=== PATIENT | male | born 1975 | race Caucasian/White ===

== ENCOUNTER 2017-04-27 07:03 | Day surgery (SDC) | payer BC, OTHER ==
[2017-04-26 14:24] VITALS: BMI 27.3
[2017-04-27] MEDS ORDERED: LIDOCAINE HCL 2% (20ML MULTI-DOSE VIAL) NR ONE (07:51)
[2017-04-27] MEDS ORDERED: PROPOFOL 20 ML ONE ×3 (07:51)
[2017-04-27 08:41] VITALS: TEMP 97.9
[2017-04-27 12:05] VITALS: BP 112/64; PULSE 52
--- NOTE | 2017-04-28 12:54 | PATH ---
Surgical Pathology Report Patient Name: RAUDEL LANCASTER [facility]. Rec. #: [id number] /Age/Gender: 1975 (Age: 42) / M Account: [id number] Location: [facility]-ENDOSCOPY Taken: 04/27/2017 Received: 04/27/2017 Reported: 04/28/2017 Physicians: Berto Ling M.D. Specimen(s) Received A: BX 2ND PORTION OF DUODENUM / BULB B: BX ANTRUM C: BX DISTAL ESOPHAGUS Clinical History Dysphagia, family history of colon cancer Non-erosive reflux, dysphagia, normal colon Final Diagnosis A. DUODENUM, SECOND PORTION AND BULB, BIOPSY: DUODENAL MUCOSA WITH MILD CHRONIC INFLAMMATION AND FOCAL NIGEL'S GLANDS HYPERPLASIA. NO HISTOLOGIC EVIDENCE OF GLUTEN SENSITIVE ENTEROPATHY (CELIAC DISEASE). B. STOMACH, ANTRUM AND BODY, BIOPSY: GASTRIC ANTRAL AND OXYNTIC MUCOSA WITH MILD CHRONIC GASTRITIS AND REACTIVE GASTROPATHY. IMMUNOSTAIN FOR H. PYLORI IS NEGATIVE FOR ORGANISMS. C. ESOPHAGUS, DISTAL AND MID, BIOPSY: SQUAMOUS EPITHELIUM WITH CHRONIC INFLAMMATION AND REFLUX TYPE CHANGES. NO COLUMNAR EPITHELIUM PRESENT (NO INTESTINAL METAPLASIA/LAMBERT'S ESOPHAGUS IDENTIFIED). NO EVIDENCE OF EOSINOPHILIC ESOPHAGITIS. Electronically Signed Isaac Alfonso M.D. Gross Description A. Received in formalin, labeled "second portion of duodenum/bulb" are three fragments of soft tissue measuring 0.3 cm in greatest dimension. The specimen is submitted in toto in one cassette. B. Received in formalin, labeled "antrum/ body" are four fragments of benavides tissue measuring 0.2-0.3 cm in greatest dimension. The specimen is submitted in toto in one cassette. C. Received in formalin, labeled "distal/mid esophagus" are four fragments of benavides-white tissue measuring 0.2-0.4 cm in greatest dimension. The specimen is submitted in toto in one cassette. AF/04/27/2017 final/04/27/2017
== END 2017-04-27 10:15 | disposition home or self-care (01) ==
LOC: JASU-ENDO 07:03
PROVIDERS: ATTEND Internal Medicine Gastroenterology
PROC: 0DB38ZX Excision of Lower Esophagus, Via Natural or Artificial Opening Endoscopic, Diagnostic (ICD-10-PCS; 2017-04-27)
PROC: 0DB68ZX Excision of Stomach, Via Natural or Artificial Opening Endoscopic, Diagnostic (ICD-10-PCS; 2017-04-27)
PROC: 0DB98ZX Excision of Duodenum, Via Natural or Artificial Opening Endoscopic, Diagnostic (ICD-10-PCS; 2017-04-27)
PROC: 0DB28ZX Excision of Middle Esophagus, Via Natural or Artificial Opening Endoscopic, Diagnostic (ICD-10-PCS; 2017-04-27)
PROC: 0DJD8ZZ Inspection of Lower Intestinal Tract, Via Natural or Artificial Opening Endoscopic (ICD-10-PCS; principal; 2017-04-27 08:00)
DX: Z12.11 Encounter for screening for malignant neoplasm of colon (principal); Z80.0 Family history of malignant neoplasm of digestive organs; K64.8 Other hemorrhoids; K21.9 Gastro-esophageal reflux disease without esophagitis; R13.10 Dysphagia, unspecified
CPT/HCPCS: 43239; G0105; 88305-TC; 88342-TC

== ENCOUNTER 2022-11-25 05:27 | Day surgery (SDC) | payer BC, OTHER ==
[2022-11-23 15:52] VITALS: BMI 27.1
[2022-11-25 10:18] VITALS: TEMP 97.5
[2022-11-25 13:22] VITALS: RESP 20
[2022-11-25 13:56] VITALS: BP 113/65; PULSE 50
== END 2022-11-25 12:33 | disposition home or self-care (01) ==
LOC: JASU-ENDO 05:27
PROVIDERS: ATTEND Internal Medicine Gastroenterology
PROC: 0DB98ZX Excision of Duodenum, Via Natural or Artificial Opening Endoscopic, Diagnostic (ICD-10-PCS; 2022-11-25)
PROC: 0DB78ZX Excision of Stomach, Pylorus, Via Natural or Artificial Opening Endoscopic, Diagnostic (ICD-10-PCS; 2022-11-25)
PROC: 0DB28ZX Excision of Middle Esophagus, Via Natural or Artificial Opening Endoscopic, Diagnostic (ICD-10-PCS; 2022-11-25)
PROC: 0DB38ZX Excision of Lower Esophagus, Via Natural or Artificial Opening Endoscopic, Diagnostic (ICD-10-PCS; 2022-11-25)
PROC: 0DJD8ZZ Inspection of Lower Intestinal Tract, Via Natural or Artificial Opening Endoscopic (ICD-10-PCS; principal; 2022-11-25 11:00)
DX: Z12.11 Encounter for screening for malignant neoplasm of colon (principal); K64.8 Other hemorrhoids; K21.00 Gastro-esophageal reflux disease with esophagitis, without bleeding; K29.80 Duodenitis without bleeding; I10 Essential (primary) hypertension; R13.10 Dysphagia, unspecified; Z83.71 Family history of colonic polyps
CPT/HCPCS: 88305-TC; 88342-TC